=== PATIENT | male | born 1950 | race Caucasian/White ===

== ENCOUNTER 2019-11-30 14:21 | Inpatient (IN) ==
[2019-11-30] MEDS ORDERED: ONDANSETRON INJ 2 MG/ML 2 ML VIAL IV PRN (15:02)
[2019-11-30] MEDS ORDERED: OXYCODONE/ACETAMINOPHEN 5mg/325mg TAB PO PRN (15:02)
[2019-11-30] MEDS ORDERED: VANCOMYCIN CONSULT ACTIVE PRN (15:22)
[2019-11-30] MEDS ORDERED: VANCOMYCIN HCL 1,000 MG in SODIUM CHLORIDE 0.9% 250 ML IV SCH (15:30)
--- NOTE | 2019-11-30 15:37 | History & Physical Report ---
Date of Service November 30, 2019 Assessment & Plan (1) S/P total knee arthroplasty: Patient is 14mos s/p right total knee arthroplasty by Dr. Morrow. Knee aspirated in office today concerning for septic total knee. Will send for cell count, grams stain and cultures. Patient direct admitted to hospital to start IV Vancomycin. Will get appropriate preop evaluations. Will need his INR reversed for planned surgical procedure tomorrow. Labs ordered. Risks, benefits, and alternatives to surgery were discussed and they wish to proceed. Will plan on right total knee I&D with poly exchange by Dr. De Los Santos tomorrow. Laterality: right Qualified Code(s): Z96.651 - Presence of right artificial knee joint (2) Infection of total knee replacement: Encounter type: initial encounter Qualified Code(s): T84.59XA - Infection and inflammatory reaction due to other internal joint prosthesis, initial encounter; Z96.659 - Presence of unspecified artificial knee joint History of Present Illness Chief Complaint: Right knee pain and swelling Primary Care Provider: Andreea Ann PA-C Patient is a 69 year old male with PMHx significant for CAD, hx of RI, afib, high cholesterol who presents to the office with worsening right knee pain and swelling. He is about 14mos s/p right total knee arthroplasty by Dr. Morrow. Post operative course was complicated by stiffness requiring manipulation but had been doing well and was having no issues. He has been having upper respiratory symptoms for the past few weeks. He notes worsening knee pain and swelling over past couple of weeks with most severe a few days ago. He has been having some chills but no recorded fevers. He recently finished course of prednisone for his respiratory symptoms. Has had some sob and wheezing off and on. No chest pain, n/v/d, urinary symptoms. Knee was aspirated inthe office for about 35cc of cloudy, yellow/white fluid. The decision was made to direct admit the patient to start IV antibiotics and planned I&D of his right total knee tomorrow by Dr. De Los Santos. Allergies Allergy/AdvReac Type Severity Reaction Status Date / Time adhesive Allergy Unknown Rash Verified 10/02/18 06:30 doxycycline Allergy Unknown Unknown Verified 10/02/18 06:30 phenazopyridine Allergy Unknown Unknown Verified 10/02/18 06:30 Home Medications Home Medications Medication Instructions Recorded Confirmed Type carvedilol phosphate 10 mg PO QAM 08/25/18 10/02/18 History omega-3 acid ethyl esters 2 cap PO BID 08/25/18 10/02/18 History ramipril 5 mg PO HS 08/25/18 10/02/18 History warfarin 4 mg PO HS 08/25/18 10/02/18 History ascorbic acid (vitamin C) [Vitamin 500 mg PO BID 08/31/18 10/02/18 History C] furosemide 1 tab PO PRN 08/31/18 History multivitamin 1 tab PO HS 08/31/18 10/02/18 History oxycodone 5 - 10 mg PO Q4H PRN #30 tab 10/04/18 Rx warfarin [Coumadin] 5 mg PO DAILY@1600 #10 tab 10/04/18 Rx Past Med/Surg History Social History Preferred Language: Somali Communication Ability: Effective Beliefs That Will Affect Care: None marital status: Current Living Situation: Spouse Feels Safe at Home: Yes Smoking Status: Never smoker Hx Alcohol Use: No Hx Substance Use: No Review of Systems All systems reviewed & are unremarkable except as noted in HPI & below Physical Exam Constitutional: well developed, well nourished and + ill appearing; no acute distress Eyes: PERRL, conjunctivae normal, anicteric sclerae ENMT: external ear and nose normal, oropharynx normal Neck: trachea midline, no thyromegaly Respiratory: normal respiratory effort; no respiratory distress Cardiovascular: RRR, no murmur, no edema Musculoskeletal: Right knee-Mild pain with passive motion, ROM 20-110 degrees. He is walking with limp. Warm to touch, no erythema. Mild to moderate effusion. No calf tenderness. Distally n/v status and sensation intact. Skin: no rashes, warm and dry Neurologic: patellar DTR's 2+ bilat, sensation intact Psychiatric: A+Ox3, euthymic affect
[2019-11-30] MEDS ORDERED: VANCOMYCIN HCL 2,250 MG in SODIUM CHLORIDE 0.9% 500 ML IV ONE (16:00)
--- NOTE | 2019-11-30 16:13 | XRay Report ---
XR chest 2V PA/lateral CLINICAL HISTORY: 69 years-old Male presenting with preop. TECHNIQUE: PA and lateral views of the chest were obtained. COMPARISON: None. FINDINGS: Median sternotomy wires and coronary artery bypass graft rings noted as well as mediastinal surgical clips. Atherosclerosis of the aortic arch. Cardiac silhouette normal in size. Lungs and pleural space s clear. Degenerative changes of the thoracic spine. Upper abdomen normal. IMPRESSION: 1. No acute cardiopulmonary disease. ACT 112: Negative or not required by law. Electronically signed by: Carlitos Simms M.D. 11/30/2019 4:12 PM
[2019-11-30 16:26] LABS: Basophils # (auto) 0.01 K/uL (0-0.2); Basophils % (auto) 0.1 %; Eosinophils # (auto) 0.08 K/uL (0-0.5); Eosinophils % (auto) 1.1 %; Hematocrit (blood only) 43.8 % (42-52); Hemoglobin 15.4 g/dL (14.0-18.0); Immature Granulocytes # (auto) 0.02 K/uL (0.00-0.02); Immature Granulocytes % (auto) 0.3 %; Lymphocytes # (auto) 1.37 K/uL (1.2-3.4); Lymphocytes % (auto) 18.5 %; Mean Corpuscular Hemoglobin 33.4 pg (25-34); Mean Corpuscular Hgb Conc 35.2 g/dL (32-36); Mean Platelet Volume 9.7 fL (7.4-10.4); Monocytes # (auto) 0.63 K/uL (0.11-0.59); Monocytes % (auto) 8.5 %; Neutrophils # (auto) 5.29 K/uL (1.4-6.5); Neutrophils % (auto) 71.5 %; Platelet Count 210 K/uL (130-400); RDW Coefficient of Variation 12.8 % (11.5-14.5); RDW Standard Deviation 44.1 fL (36.4-46.3); Red Blood Count 4.61 M/uL (4.7-6.1)
[2019-11-30] MEDS: SODIUM CHLORIDE 0.9% 1000ML 1,000 ML IV SCH (16:32)
[2019-11-30] MEDS: PATIENT'S HEIGHT AND/OR WEIGHT NEEDED SCH (16:39)
[2019-11-30 16:44] LABS: Calcium 9.3 mg/dl (8.5-10.1); Creatinine Clr Calc Pharmacy 91.2 ml/min; Est GFR (African American) 89.7; Est GFR (Non-African American) 77.4; Potassium 4.4 mmol/L (3.5-5.1)
[2019-11-30 16:52] LABS: INR 2.3 (0.9-1.1); Prothrombin Time 23.1 Seconds (9.0-12.0)
--- NOTE | 2019-11-30 17:29 | Hospitalist Consultation ---
Date of Consultation November 30, 2019 Assessment & Plan (1) Infection of total knee replacement: - S/P R TKA in Sep 2018 - unremarkable recovery but unfortunately developed worsening pain and swelling with aspiration concerning for infection -- Surprisingly Synovial WBC only 78? It is possibly but probably unlikely for a gout however being on steroids would likely improve this if this was the case? - Pain control; Vancomycin started empirically and await Cx - Surgical management per primary team On the advised cardiac risk index patient would be a class II 6% risk of cardiac issue in 30 days related to his H/O MD. Will reverse Coumadin. Await EKG to determine any ischemic changes. If no issues on INR/EKG would be optimal for surgical intervention (2) CAD (coronary artery disease): - STABLE per patient report; H/O CABG and NSTEMI - Echo (December 2017) - EF 55-60% with hypokinesis of basal inferolateral wall - no recent echocardiograms to compare; saw cardiology prior to initial knee replacement - Reports ability to climb flights of stairs without SOB or CP; EKG ordered and will be reviewed - Will hold Ramipril pre-operatively - did have H/O ANGELO on previous admission and will try and avoid this; pending post-operative labs this can be resumed (3) Atrial fibrillation: - Rate controlled; seems to examine irregular and will get EKG to confirm - Patient reports this was once paroxysmal but largely remains in A Fib; per record review he had a holter that revealed A Fib 100% of the time - Continue Carvedilol 10 mg daily - INR 2.3 - will give Vit K 2.5 IV x 1 dose tonight and recheck in AM to determine need for further reversal -- CHADSVASC - Score is about a 2 maybe 3 if he truly has CHF issues but that is not endorsed so CVA risk 2.2-3.2% yearly Disposition: From home. Await need for surgical intervention. Hospitalists will continue to follow. Supervising Physician Co-Signing Physician Notes Attending Consult Note and Attestation - Pt seen/examined, chart reviewed, care plan d/w YOU Mojica. I agree w/ the olivo components of her consult documentation. 69yo male with h/o CABG and a.fib on coumadin - s/p TKR on right 2018 - presenting with progressive pain/swelling/warmth of right knee for several weeks. Interestingly, despite the above, he was able to bike 10 miles yesterday without any limitation (and has been biking avidly chronically). Went to [facility] ortho today- due to right knee findings had arthrocentesis - by report 35cc of cloudy fluid was obtained concerning for septic knee. Directly admitted for antibiotics and surgical intervention. During my visit the pt also c/o hoarse voice and resp illness for a few weeks. Recently received prednisone for such. PMH, PSH, allergies, meds, sochx, famhx, ros - reviewed VSS, no fever gen - NAD, a/o x3 HEENT - MMM, hoarse voice neck - no JVD heart - irregular, s1 s2, no murmur lungs - CTA b/l abd - soft NT ext - right knee with warmth and joint effusion; NO TENDERNESS with palpation or passive ROM; linear scar over the joint; left knee wnl labs reviewed A/P: 1. right total knee replacement, 2019; now with concern for septic knee. Unusual presentation given his ability to continue to bike and perform ADLs w/o limitation. WBCs on cell count very low - also odd for septic knee. Await culture from synovial fluid. Agree w/ IV vanco. Obtain blood cultures x 2 sets. Defer management to ortho. 2. a.fib, on chronic coumadin - vit K 2.5mg IV x 1; repeat INR in am. If INR not at goal that would allow safe surgery then give additional vit K at that time. 3. h/o CABG - NO ISCHEMIC SYMPTOMS at any time recently; avid exercise participation without any limitation. From medical standpoint he is optimized for orthopedic surgery tomorrow. Matthew Baires MD History of Present Illness Reason for Consultation: Pre-Op; Medical Management Attending Physician: Daniel De Los Santos MD History of Present Illness Mr. Edwards is a 69 y/o male with PMHx of CAD S/P CABG, NSTEMI (2010), Chronic A Fib, and HLD who presents as a direct admission from the orthopedics office with concern for septic knee. Pt underwent a R TKA in September 2018. Pt reports a unremarkable recovery and feels he is in his best physical shape since having the surgery. He bikes and is very active. He reports he is able to ambulate flights of stairs without SOB/CP. He denies angina. He states he was doing well until approx. 1 1/2 weeks ago when he developed URI symptoms. He states he influenza and pneumonia was R/Od but finished a prednisone taper. He reports his respiratory status is improved but still with a hoarse voice. He states he does get intermittent leg swelling but relates this to his orthopedic procedure and his L leg he had vein harvesting. He states he is sure some is from his heart but overall stable. Reviewed uploaded records from previous hospital stay and cardiology at that time said he has been very stable cardiac ajckson. He reports no acute issues. In regards to the knee, he states after his URI symptoms started that was when he developed worsening swelling and pain in the knee. He took one of his diuretics to see if that would help and it did not. He presented to the orthopedic office today and had a joint aspiration. Per their note, he was aspirated for 35 cc of cloudy, yellow/white fluid. Planning on I&D tomorrow. Allergies Allergy/AdvReac Type Severity Reaction Status Date / Time adhesive Allergy Unknown Rash Verified 10/02/18 06:30 doxycycline Allergy Unknown Unknown Verified 10/02/18 06:30 phenazopyridine Allergy Unknown Unknown Verified 10/02/18 06:30 Home Medications Home Medications Medication Instructions Recorded Confirmed Type carvedilol phosphate 10 mg PO QAM 08/25/18 11/30/19 History omega-3 acid ethyl esters 2 cap PO BID 08/25/18 11/30/19 History ramipril 5 mg PO HS 08/25/18 11/30/19 History warfarin 4 mg PO HS 08/25/18 11/30/19 History ascorbic acid (vitamin C) [Vitamin 500 mg PO BID 08/31/18 11/30/19 History C] furosemide 1 tab PO PRN 08/31/18 History multivitamin 1 tab PO HS 08/31/18 11/30/19 History oxycodone 5 - 10 mg PO Q4H PRN #30 tab 10/04/18 11/30/19 Rx warfarin [Coumadin] 4 mg PO DAILY@2200 11/30/19 History Patient History Medical History Atrial fibrillation persistent BPH (benign prostatic hyperplasia) s/p TURP CAD (coronary artery disease) Dyslexia High cholesterol Hx of Lyme disease Hx of myocardial infarction December 24/2018 -went to [facility] and transfered to [facility]. Had Heart Cath - no stenting. Hx of syncope If turns head to left and turns eyes back - gets dizzy and occassionally passes out. Evaluated by neuro --thought to be related to vertebrobasilar stenosis Osteoarthritis Surgical History History of cardiac cath 12/2017 History of colonoscopy History of prostate surgery Hx of hand surgery traumatic injury index finger right hand Hx of heart bypass surgery x4 vessels - [facility] - 06/30/2011 Hx of tonsillectomy Family History (Updated 11/30/19 @ 17:57 by Madiha Mojica PA-C) Other Family history non-contributory Social History Preferred Language: Swedish Communication Ability: Effective [place] Required: No Beliefs That Will Affect Care: None marital status: Current Living Situation: Spouse and Family Other Information That Helps Us Care for You: No Feels Safe at Home: Yes Safety Concerns: Feels Safe At This Time Smoking Status: Never smoker Hx Alcohol Use: No Hx Substance Use: No Review of Systems Constitutional: no fever and no chills Ear, Nose, Mouth, Throat: + hoarseness; no nasal congestion, no sore throat and no dysphagia Respiratory: + cough; no dyspnea Cardiovascular: + edema (chronic; acute in R knee); no chest pain, no palpitations and no lightheadedness Gastrointestinal: no abdominal pain, no nausea, no vomiting, no constipation and no diarrhea/loose stools Genitourinary: no dysuria Musculoskeletal: + joint pain (R knee) and + swelling (R knee) Integumentary: no rash Neurologic: no falls Physical Exam Constitutional: WD/WN, vitals as above Eyes: + anicteric sclerae ENMT: Ears: no hearing impairment Neck: trachea midline Respiratory: normal respiratory effort, lungs clear to auscultation Cardiovascular: Rate/Rhythm: regular rate and + irregularly irregular Heart Sounds: no murmur Vessels: no JVD Extremities: + edema (trace b/l lower extremities) Gastrointestinal (Abdomen): Inspection/Auscultation: normal bowel sounds Percussion/Palpation: abdomen soft; abdomen nontender Musculoskeletal: Head/Neck/Chest: normocephalic and head atraumatic R knee with healed surgical scar; no drainage or erythema; mild warmth to touch Skin: no rashes, warm and dry Neurologic: moves all extremities Psychiatric: A+Ox3, euthymic affect Results & Data ([facility]) Vital Signs (Past 12 Hours) Vital Signs Temp Pulse Resp BP Pulse Ox 11/30/19 15:28 37.0 C 74 16 136/76 93 PG Care Time/CCT Total # of Minutes Spent Total Time Spent with Patient: Total time spent is greater than 50% in coordination of care (as documented) at patient's floor/unit and/or counseling patient: Coding Level of Care Code 70455 Inpt Consult Level 4 Diagnoses Infection of total knee replacement T84.59XA; Z96.659 Encounter type: initial encounter CAD (coronary artery disease) I25.10 Atrial fibrillation I48.91 (1) Infection of total knee replacement Encounter type: initial encounter Qualified Code(s): T84.59XA - Infection and inflammatory reaction due to other internal joint prosthesis, initial encounter; Z96.659 - Presence of unspecified artificial knee joint
[2019-11-30] MEDS ORDERED: PHYTONADIONE 2.5 MG in SODIUM CHLORIDE 0.9% 50 ML IV STA (17:50)
[2019-11-30 17:59] LABS: Appearance Synovial Fluid CLOUDY; Color Synovial Fluid YELLOW; Mononuclear WBC Synovial 3.6 %; Polynuclear WBC Synovial 96.4 %; RBC Synovial Fluid (A) 10000 /uL; Source Synovial Fluid KNEE
[2019-11-30] MEDS ORDERED: FUROSEMIDE 20 MG TAB PO PRN (18:00)
--- NOTE | 2019-11-30 20:51 | Pharmacy Report ---
Pharmacy Abx Initial Consult - Date of Service November 30, 2019 - Pharmacy Dosing Scope Date of Consult: 11/30/2019 Consultation requested by: Craig Gloria PA-C Pharmacy is consulted to initiate Vancomycin IV dosing therapy, order appropriate labs and adjust drug dose/frequency. - Subjective The patient is a 69 year old M admitted on 11/30/19 14:53. - Objective Height: 6 ft 2 in Weight: 105.5 kg Vital Signs (Past 12hrs): Vital Signs Temp Pulse Resp BP Pulse Ox 11/30/19 19:35 36.9 C 73 16 123/73 98 11/30/19 19:15 36.8 C 83 16 125/81 96 11/30/19 19:00 36.8 C 83 18 124/82 98 11/30/19 15:28 37.0 C 74 16 136/76 93 Lab Results (24hrs): Laboratory Tests (24 Hours) 11/30/19 11/30/19 11/30/19 16:13 16:13 16:13 WBC Neut # (Auto) ESR 83 H Creatinine Cancelled Est Cr Clr Drug Dosing Cancelled C-Reactive Protein 11.50 H 11/30/19 11/30/19 16:13 16:13 WBC 7.40 Neut # (Auto) 5.29 ESR Creatinine 0.99 Est Cr Clr Drug Dosing 91.2 C-Reactive Protein Micro Results: 11/30/19 18:11 Aerobic Blood Culture - Pending Blood Anaerobic Blood Culture - Pending 11/30/19 18:01 Aerobic Blood Culture - Pending Blood Anaerobic Blood Culture - Pending 11/30/19 Unknown Gram Stain - Pending Knee,Right Aerobic and Anaerobic Culture - Pending - Risk Factors for Resistance * Antimicrobial use within the last 90 days: * Clindamycin - Assessment & Plan Assessment 69 year old M admitted for possible septic knee 14 months s/p TKA I&D planned for 11/30 Renal function at baseline, afebrile, no leukocytosis Plan Vancomycin for treatment of suspected septic knee Vancomycin IV * Estimated PK Parameters: Vd 0.6 L/kg, Tony 0.08 hr-1, t1/2 ~9 hrs * Loading dose: 2250 mg (21 mg/kg) * Maintenance dose: 1500 mg IV (14 mg/kg) every 10 hours * Goal trough: 15 to 20 mcg/mL * Trough/Random level ordered for 12/02/2019 prior to the 5th total dose to reflect steady state levels Pharmacy will continue to follow and will adjust dose/frequency as necessary. Thank you.
[2019-11-30] MEDS ORDERED: RAMIPRIL 5 MG PO SCH (21:00)
[2019-11-30] MEDS: carvediloL 3.125 MG TAB PO SCH (21:35)
[2019-12-01] MEDS: VANCOMYCIN HCL 1,500 MG in SODIUM CHLORIDE 0.9% 500 ML IV SCH ×3 (02:19→21:43)
[2019-12-01] MEDS: SODIUM CHLORIDE 0.9% 1000ML 1,000 ML IV SCH ×2 (05:23→21:42)
[2019-12-01 05:25] LABS: Hematocrit (blood only) 37.7 % (42-52); Hemoglobin 12.9 g/dL (14.0-18.0); Mean Corpuscular Hemoglobin 32.3 pg (25-34); Mean Corpuscular Hgb Conc 34.2 g/dL (32-36); Mean Corpuscular Volume 94.3 fL (80-100); Mean Platelet Volume 9.3 fL (7.4-10.4); Platelet Count 180 K/uL (130-400); RDW Coefficient of Variation 12.8 % (11.5-14.5); RDW Standard Deviation 44.3 fL (36.4-46.3); White Blood Count 5.27 K/uL (4.8-10.8)
[2019-12-01 05:41] LABS: INR 1.5 (0.9-1.1); Prothrombin Time 15.1 Seconds (9.0-12.0)
[2019-12-01 05:55] LABS: BUN Creatinine Ratio 16.9 (10-20); Calcium 8.2 mg/dl (8.5-10.1); Est GFR (African American) 96.7; Est GFR (Non-African American) 83.5; Potassium 4.2 mmol/L (3.5-5.1)
[2019-12-01] MEDS: carvediloL 3.125 MG TAB PO SCH ×2 (08:26→20:55)
[2019-12-01 11:23] LABS: WBC Synovial Fluid (A) 78400 /ul (0-200)
[2019-12-01] MEDS ORDERED: MIDAZOLAM HCL 1 MG/ML 2ML VIAL ONE (13:52)
[2019-12-01] MEDS ORDERED: fentaNYL citrate 100 MCG/2 ML VIAL ONE (13:52)
--- NOTE | 2019-12-01 14:05 | Hospitalist Progress Note ---
Date of Service December 01, 2019 Assessment & Plan (1) Infection of total knee replacement: - S/p R TKA in Sep 2018; unremarkable recovery but unfortunately developed worsening pain and swelling with aspirated fluid concerning for infection. - Synovial WBC 78; consider addition of steroids for gout & uric acid level. - Right knee fluid with pin point growth, currently re-incubating. - Continue Vancomycin IV for empiric coverage. - Ortho as primary team - plan for right total knee I&D with poly exchange today. On the advised cardiac risk index patient would be a class II 6% risk of cardiac issue in 30 days related to his H/O [place]. Reversed Coumadin, INR was 1.5 this morning. (2) CAD (coronary artery disease): - H/o CABG and NSTEMI - Echo (December 2017) - EF 55-60% with hypokinesis of basal inferolateral wall - no recent echocardiograms to compare. - Can climb flights of stairs without SOB or CP. - Hold Ramipril during operative period; continue Coreg as prescribed. (3) Atrial fibrillation: - Rate controlled on exam. - Patient reports this was once paroxysmal but largely remains in A Fib; per record review he had a holter that revealed A Fib 100% of the time - Continue Carvedilol 3.125 mg BID (10 mg daily at home, is non-formulary as inpatient) - INR was reversed on day of admission, 1.5 this morning. - CHADSVASC - Score is about a 2 maybe 3 if he truly has CHF issues but that is not endorsed so CVA risk 2.2-3.2% yearly. Dispo: Med/surg; will continue to follow, please call with any questions. Admission and Anticipated Discharge Date Admission Date: November 30, 2019 Supervising Physician Co-Signing Physician Notes Attending Attestation - Chart reviewed in detail, care plan d/w YOU Hooker. I agree w/ the olivo components of her documentation. 69yo male - a.fib, CAD - right suspected right septic knee in setting of TKR 1 year ago. Synovial fluid cx pending; remains on IV vanco. To OR today. Await cultures. Matthew Baires MD Subjective Pt. is doing well -- right knee pain improved. Plan for surgery per ortho today. Has not had a BM since admission. Denies urinary retention. Review of Systems Review of Systems: All systems reviewed & are unremarkable except as noted in HPI & below Constitutional: + fatigue and + weakness; no fever, no chills and no anorexia Respiratory: no cough, no dyspnea and no dyspnea on exertion Cardiovascular: no chest pain, no palpitations and no edema Gastrointestinal: + constipation; no abdominal pain, no nausea and no vomiting Genitourinary: no difficulty urinating Musculoskeletal: + joint pain and + swelling; no back pain Integumentary: no non-healing lesions Physical Exam Physical Exam: General: Resting comfortably HEENT: NC/AT; PERRLA with EOMI; [place] conjunctiva, MMM. No erythema of posterior pharynx Neck: Supple and nontender Cardiac: RRR Lungs: CTA bilaterally Abdomen: Bowel normoactive X 4; Nontender to palpation Extremities: Warm. Right knee edema, tender to light palpation. Neuro: No focal weakness Skin: No rash Results & Data ([facility]) Vital Signs (Past 12 Hours) Vital Signs Temp Pulse Resp BP Pulse Ox 12/01/19 07:16 36.8 C 81 18 130/80 98 Laboratory Results 12/01/19 12/01/19 12/01/19 Range/Units 05:08 05:08 05:08 WBC 5.27 (4.8-10.8) K/uL RBC 4.00 L (4.7-6.1) M/uL Hgb 12.9 L (14.0-18.0) g/dL Hct 37.7 L (42-52) % MCV 94.3 (80-100) fL MCH 32.3 (25-34) pg MCHC 34.2 (32-36) g/dL RDW Std Deviation 44.3 (36.4-46.3) fL RDW Coeff of Carlos 12.8 (11.5-14.5) % Plt Count 180 (130-400) K/uL MPV 9.3 (7.4-10.4) fL Immature Gran % (Auto) % Neut % (Auto) % Lymph % (Auto) % [place] % (Auto) % Eos % (Auto) % Baso % (Auto) % Immature Gran # (Auto) (0.00-0.02) K/uL Neut # (Auto) (1.4-6.5) K/uL Lymph # (Auto) (1.2-3.4) K/uL [place] # (Auto) (0.11-0.59) K/uL Eos # (Auto) (0-0.5) K/uL Baso # (Auto) (0-0.2) K/uL ESR (0-14) mm/hr PT 15.1 H (9.0-12.0) Seconds INR 1.5 H (0.9-1.1) Sodium 139 (136-145) mmol/L Potassium 4.2 (3.5-5.1) mmol/L Chloride 109 H (98-107) mmol/L Carbon Dioxide 26 (21-32) mmol/L Anion Gap 4.0 (3-11) BUN 16 (7-18) mg/dl Creatinine 0.93 (0.6-1.4) mg/dl Est Cr Clr Drug Dosing 97.0 ml/min Est GFR ( Amer) 96.7 Est GFR (Non-Af Amer) 83.5 BUN/Creatinine Ratio 16.9 (10-20) Glucose 101 H (70-99) mg/dl Calcium 8.2 L (8.5-10.1) mg/dl C-Reactive Protein (0-0.29) mg/dl Synovial Source Synovial Color Synovial Appearance Synovial WBC (0-200) /ul Synovial RBC /uL Synovial Polynuclear % % Synovial Mononuclear % % Synovial Crystals 11/30/19 11/30/19 11/30/19 Range/Units Unknown Unknown 16:13 WBC (4.8-10.8) K/uL RBC (4.7-6.1) M/uL Hgb (14.0-18.0) g/dL Hct (42-52) % MCV (80-100) fL MCH (25-34) pg MCHC (32-36) g/dL RDW Std Deviation (36.4-46.3) fL RDW Coeff of Carlos (11.5-14.5) % Plt Count (130-400) K/uL MPV (7.4-10.4) fL Immature Gran % (Auto) % Neut % (Auto) % Lymph % (Auto) % [place] % (Auto) % Eos % (Auto) % Baso % (Auto) % Immature Gran # (Auto) (0.00-0.02) K/uL Neut # (Auto) (1.4-6.5) K/uL Lymph # (Auto) (1.2-3.4) K/uL [place] # (Auto) (0.11-0.59) K/uL Eos # (Auto) (0-0.5) K/uL Baso # (Auto) (0-0.2) K/uL ESR (0-14) mm/hr PT (9.0-12.0) Seconds INR (0.9-1.1) Sodium (136-145) mmol/L Potassium (3.5-5.1) mmol/L Chloride (98-107) mmol/L Carbon Dioxide (21-32) mmol/L Anion Gap (3-11) BUN (7-18) mg/dl Creatinine (0.6-1.4) mg/dl Est Cr Clr Drug Dosing ml/min Est GFR ( Amer) Est GFR (Non-Af Amer) BUN/Creatinine Ratio (10-20) Glucose (70-99) mg/dl Calcium (8.5-10.1) mg/dl C-Reactive Protein 11.50 H (0-0.29) mg/dl Synovial Source KNEE Synovial Color YELLOW Synovial Appearance CLOUDY Synovial WBC 70690 H (0-200) /ul [place] [address] /uL Synovial Polynuclear % 96.4 % Synovial Mononuclear % 3.6 % Synovial Crystals 11/30/19 11/30/19 11/30/19 Range/Units 16:13 16:13 16:13 WBC (4.8-10.8) K/uL RBC (4.7-6.1) M/uL Hgb (14.0-18.0) g/dL Hct (42-52) % MCV (80-100) fL MCH (25-34) pg MCHC (32-36) g/dL RDW Std Deviation (36.4-46.3) fL RDW Coeff of Carlos (11.5-14.5) % Plt Count (130-400) K/uL MPV (7.4-10.4) fL Immature Gran % (Auto) % Neut % (Auto) % Lymph % (Auto) % [place] % (Auto) % Eos % (Auto) % Baso % (Auto) % Immature Gran # (Auto) (0.00-0.02) K/uL Neut # (Auto) (1.4-6.5) K/uL Lymph # (Auto) (1.2-3.4) K/uL [place] # (Auto) (0.11-0.59) K/uL Eos # (Auto) (0-0.5) K/uL Baso # (Auto) (0-0.2) K/uL ESR 83 H (0-14) mm/hr PT (9.0-12.0) Seconds INR (0.9-1.1) Sodium 137 (136-145) mmol/L Potassium 4.4 (3.5-5.1) mmol/L Chloride 105 (98-107) mmol/L Carbon Dioxide 27 (21-32) mmol/L Anion Gap 5.0 (3-11) BUN 18 (7-18) mg/dl Creatinine Cancelled 0.99 (0.6-1.4) mg/dl Est Cr Clr Drug Dosing Cancelled 91.2 ml/min Est GFR ( Amer) Cancelled 89.7 Est GFR (Non-Af Amer) Cancelled 77.4 BUN/Creatinine Ratio 18.0 (10-20) Glucose 92 (70-99) mg/dl Calcium 9.3 (8.5-10.1) mg/dl C-Reactive Protein (0-0.29) mg/dl Synovial Source Synovial Color Synovial Appearance Synovial WBC (0-200) /ul Synovial RBC /uL Synovial Polynuclear % % Synovial Mononuclear % % Synovial Crystals 11/30/19 11/30/19 Range/Units 16:13 16:12 WBC 7.40 (4.8-10.8) K/uL RBC 4.61 L (4.7-6.1) M/uL Hgb 15.4 (14.0-18.0) g/dL Hct 43.8 (42-52) % MCV 95.0 (80-100) fL MCH 33.4 (25-34) pg MCHC 35.2 (32-36) g/dL RDW Std Deviation 44.1 (36.4-46.3) fL RDW Coeff of Carlos 12.8 (11.5-14.5) % Plt Count 210 (130-400) K/uL MPV 9.7 (7.4-10.4) fL Immature Gran % (Auto) 0.3 % Neut % (Auto) 71.5 % Lymph % (Auto) 18.5 % [place] % (Auto) 8.5 % Eos % (Auto) 1.1 % Baso % (Auto) 0.1 % Immature Gran # (Auto) 0.02 (0.00-0.02) K/uL Neut # (Auto) 5.29 (1.4-6.5) K/uL Lymph # (Auto) 1.37 (1.2-3.4) K/uL [place] # (Auto) 0.63 H (0.11-0.59) K/uL Eos # (Auto) 0.08 (0-0.5) K/uL Baso # (Auto) 0.01 (0-0.2) K/uL ESR (0-14) mm/hr PT 23.1 H (9.0-12.0) Seconds INR 2.3 H (0.9-1.1) Sodium (136-145) mmol/L Potassium (3.5-5.1) mmol/L Chloride (98-107) mmol/L Carbon Dioxide (21-32) mmol/L Anion Gap (3-11) BUN (7-18) mg/dl Creatinine (0.6-1.4) mg/dl Est Cr Clr Drug Dosing ml/min Est GFR ( Amer) Est GFR (Non-Af Amer) BUN/Creatinine Ratio (10-20) Glucose (70-99) mg/dl Calcium (8.5-10.1) mg/dl C-Reactive Protein (0-0.29) mg/dl Synovial Source Synovial Color Synovial Appearance Synovial WBC (0-200) /ul Synovial RBC /uL Synovial Polynuclear % % Synovial Mononuclear % % Synovial Crystals PG Care Time/CCT Total # of Minutes Spent Total Time Spent with Patient: Total time spent is greater than 50% in coordination of care (as documented) at patient's floor/unit and/or counseling patient: Coding Level of Care Code 37025 Subseq Hosp Care Lvl 3 Diagnoses Infection of total knee replacement T84.59XA; Z96.659 Encounter type: initial encounter CAD (coronary artery disease) I25.10 Atrial fibrillation I48.91 (1) Infection of total knee replacement Encounter type: initial encounter Qualified Code(s): T84.59XA - Infection and inflammatory reaction due to other internal joint prosthesis, initial encounter; Z96.659 - Presence of unspecified artificial knee joint
[2019-12-01] MEDS ORDERED: BACITRACIN INJ 50,000 UNIT VIAL ONE ×2 (14:51→16:30)
--- NOTE | 2019-12-01 15:09 | Orthopedic Progress Note ---
Date of Service December 01, 2019 Assessment & Plan (1) Infection of total knee replacement: Plan for right TKA I&D today with poly exchange. Patient NPO. Admission and Anticipated Discharge Date Admission Date: November 30, 2019 Subjective Prepared for knee I&D today. cell count corrected to 78,00 Patient comfortable. Physical Exam Physical Exam: Right knee warm to touch, mild erythema, no drainage. Mild pain with PROM. Results & Data ([facility]) Vital Signs (Past 12 Hours) Vital Signs Temp Pulse Resp BP Pulse Ox 12/01/19 07:16 36.8 C 81 18 130/80 98 (1) Infection of total knee replacement Encounter type: initial encounter Qualified Code(s): T84.59XA - Infection and inflammatory reaction due to other internal joint prosthesis, initial encounter; Z96.659 - Presence of unspecified artificial knee joint
--- NOTE | 2019-12-01 15:12 | Anesthesiology Consultation ---
Date of Service December 01, 2019 Assessment & Plan (1) Encounter for pre-operative examination: Chart Review Chart Review: Acceptable Risk for Surgery and Patient NOT seen in Pre Admission Testing Consults Requested none History Surgery Operation Date: 12/01/19 07:00 Proposed Procedures p Right Total Knee, Irrigation and Drainage with Poly Exchange - Daniel De Los Santos MD Height/Weight Height: 6 ft 2 in Weight: 105.5 kg Allergies Allergy/AdvReac Type Severity Reaction Status Date / Time adhesive Allergy Unknown Rash Verified 10/02/18 06:30 doxycycline Allergy Unknown Unknown Verified 10/02/18 06:30 phenazopyridine Allergy Unknown Unknown Verified 10/02/18 06:30 Medications Home Medications Medication Instructions Recorded Confirmed Last Taken carvedilol phosphate 10 mg PO QAM 08/25/18 11/30/19 11/30/19 08:00 omega-3 acid ethyl esters 2 cap PO BID 08/25/18 11/30/19 11/30/19 08:00 ramipril 5 mg PO HS 08/25/18 11/30/19 11/29/19 22:00 warfarin 4 mg PO HS 08/25/18 11/30/19 11/29/19 22:00 ascorbic acid (vitamin C) [Vitamin 500 mg PO BID 08/31/18 11/30/19 11/30/19 08:00 C] furosemide 1 tab PO PRN 08/31/18 Unknown multivitamin 1 tab PO HS 08/31/18 11/30/19 11/29/19 22:00 oxycodone 5 - 10 mg PO Q4H PRN #30 tab 10/04/18 11/30/19 Unknown warfarin [Coumadin] 4 mg PO DAILY@2200 11/30/19 11/29/19 22:00 Active Medications Generic Name Dose Route Start Last Admin Trade Name Freq PRN Reason Stop Dose Admin Carvedilol 3.125 mg 11/30/19 21:00 12/01/19 08:26 Coreg PO 12/30/19 20:59 3.125 mg BID FRANK Administration Protocol Sodium Chloride 1,000 mls @ 70 mls/hr 11/30/19 15:15 12/01/19 05:23 Nss 1000ml IV 12/30/19 15:14 70 mls/hr .[id number] FRANK Administration Vancomycin HCl 1,500 mg/ 530 mls @ 200 mls/hr 12/01/19 02:00 12/01/19 14:12 Sodium Chloride IV 01/12/20 01:59 Infused Q10H FRANK Infusion Protocol NPO Date Last Intake of Fluids: 11/30/19 Time Last Intake of Fluids: 23:55 Date Last Intake of Solids: 11/30/19 Time Last Intake of Solids: 18:00 Past Medical History Medical History (Updated 12/01/19 @ 15:39 by Julio Granda MD) Atrial fibrillation persistent BPH (benign prostatic hyperplasia) s/p TURP CAD (coronary artery disease) Dyslexia High cholesterol Hx of Lyme disease Hx of myocardial infarction December 24/2018 -went to [facility] and transfered to [facility]. Had Heart Cath - no stenting. Hx of syncope If turns head to left and turns eyes back - gets dizzy and occassionally passes out. Evaluated by neuro --thought to be related to vertebrobasilar stenosis Osteoarthritis Past Family History Family History Other Family history non-contributory Past Surgical History Surgical History History of cardiac cath 12/2017 History of colonoscopy History of prostate surgery History of total knee arthroplasty 10/02/19 R knee Hx of hand surgery traumatic injury index finger right hand Hx of heart bypass surgery x4 vessels - [facility] - 06/30/2011 Hx of tonsillectomy Social History Smoking Status: Never smoker Hx Alcohol Use: No Hx Substance Use: No Physical Exam Vital Signs Last Vital Signs Temp 36.8 C 12/01/19 15:11 Pulse 80 12/01/19 15:11 Resp 18 12/01/19 15:11 BP 133/84 12/01/19 15:11 Pulse Ox 98 12/01/19 15:11 Testing Laboratory Results 12/01/19 05:08 12/01/19 05:08 PT 15.1 Seconds (9.0-12.0) H 12/01/19 05:08 INR 1.5 (0.9-1.1) H 12/01/19 05:08 11/30/19 Unknown Gram Stain - Final Knee,Right Aerobic and Anaerobic Culture - Preliminary Pin-point growth present, reincubating. Electrocardiogram Date: 12/01/19 Findings: + AFIB @ (82) L axis deviation Chest X-Ray Date: 11/30/19 XR chest 2V PA/lateral CLINICAL HISTORY: 69 years-old Male presenting with preop. TECHNIQUE: PA and lateral views of the chest were obtained. COMPARISON: None. FINDINGS: Median sternotomy wires and coronary artery bypass graft rings noted as well as mediastinal surgical clips. Atherosclerosis of the aortic arch. Cardiac silhouette normal in size. Lungs and pleural spaces clear. Degenerative changes of the thoracic spine. Upper abdomen normal. IMPRESSION: 1. No acute cardiopulmonary disease. ACT 112: Negative or not required by law. Electronically signed by: Carlitos Simms M.D. 11/30/2019 4:12 PM Dictated: 11/30/19 1611 Transcribed: 11/30/19 1611
--- NOTE | 2019-12-01 15:50 | History & Physical Bridge Note ---
Date of Service December 01, 2019 History & Physical Bridge Note I have examined the patient, reviewed the History & Physical and in the interval since the performance of the History & Physical I have noted the following changes of clinical significance: no changes noted
--- NOTE | 2019-12-01 16:27 | Electrocardiogram Report ---
Test Reason : Blood Pressure : / mmHG Vent. Rate : 082 BPM Atrial Rate : 000 BPM P-R Int : 000 ms QRS Dur : 082 ms QT Int : 346 ms P-R-T Axes : 000 -31 046 degrees QTc Int : 404 ms Atrial fibrillation Left axis deviation Peaked T waves(consider ischemia,hyperkalemia,etc.) Abnormal ECG No previous ECGs available Confirmed by Syed Bond ([id number]) on 12/01/2019 4:27:45 PM Referred By: Daniel De Los Santos Confirmed By:Syed Bond
[2019-12-01] MEDS ORDERED: TOBRAMYCIN SULF 40 MG/ML 2 ML VIAL ONE ×2 (16:40→16:48)
[2019-12-01] MEDS ORDERED: VANCOMYCIN HCL 1000MG/20ML VIAL ONE (16:41)
[2019-12-01] MEDS ORDERED: TOBRAMYCIN SULFATE 1,200 MG VIAL ONE (16:41)
[2019-12-01] MEDS ORDERED: HYDROmorphone INJ 2 MG/ML SYR/VIAL ONE (16:54)
[2019-12-01] MEDS ORDERED: PROPOFOL IV EMULSION 10 MG/ML 20 ML VIAL IV ONE (16:55)
[2019-12-01] MEDS ORDERED: LIDOCAINE HCL 2% 2 ML VIAL/AMP(20MG/ML) INFIL ONE (16:55)
[2019-12-01] MEDS ORDERED: ONDANSETRON INJ 2 MG/ML 2 ML VIAL ONE (16:55)
[2019-12-01] MEDS ORDERED: ATROPINE SULFATE 0.1 MG/ML 10ML SYR IV PRN (16:59)
[2019-12-01] MEDS ORDERED: ePHEDrine sulfate 50 MG/ML AMP IV PRN (16:59)
[2019-12-01] MEDS ORDERED: fentaNYL citrate 100 MCG/2 ML VIAL IV PRN (16:59)
[2019-12-01] MEDS ORDERED: LABETALOL HCL IV 5 MG/ML 20ML IV PRN (16:59)
[2019-12-01] MEDS ORDERED: HYDROmorphone INJ 1 MG/ML SYRINGE IV PRN (16:59)
[2019-12-01] MEDS ORDERED: PHENYLEPHRINE 100MCG/ML 5ML SYR IV PRN (16:59)
[2019-12-01] MEDS ORDERED: ONDANSETRON INJ 2 MG/ML 2 ML VIAL IV PRN ×2 (16:59→23:00)
--- NOTE | 2019-12-01 18:26 | Post Operative Brief Note ---
Immediate Post Op Note v1 Date of Surgery December 01, 2019 Pre & Post Diagnosis Operation Date: 12/01/19 07:00 Pre-Op Diagnosis: Right Knee Pain, S/P Total Knee Replacement,septic total knee replacement Post-Op Diagnosis: Right Knee Pain, Septic Total Knee Replacement I identified the patient and participated in the time-out.: Yes Procedure Operation Date: 12/01/19 07:00 Actual Procedures p Right Total Knee, Incision and Drainage, Irrigation Debridement with Polyethelene Exchange; Synovectomy; Antibiotic Bead Placement(Right) - Daniel De Los Santos MD Surgeon Daniel De Los Santos MD Trials Manager YOU Lee Estimated Blood Loss 20 Findings Consistent with Post-Op Diagnosis Specimens Synovium, cultures x2 Drains Hemovac Drain Anesthesia Type General Complications none Disposition Accompanied Patient To Recovery: No Disposition: Recovery Room Overlapping Procedure I was immediately available: during the entire case.
--- NOTE | 2019-12-01 18:57 | Anesthesiology Progress Note ---
Date of Service December 01, 2019 Anesthesia Post Procedure Vital Signs Vital Signs: Temp Pulse Pulse Resp BP BP Pulse Ox 12/01/19 18:45 97 H 14 125/88 98 12/01/19 18:35 92 H 16 134/83 96 12/01/19 18:27 36.4 C L 91 H 12 126/89 97 12/01/19 15:11 36.8 C 80 18 133/84 98 12/01/19 07:16 36.8 C 81 18 130/80 98 11/30/19 23:21 36.8 C 70 18 114/72 97 11/30/19 19:35 36.9 C 73 16 123/73 98 11/30/19 19:15 36.8 C 83 16 125/81 96 11/30/19 19:00 36.8 C 83 18 124/82 98 Pain Intensity Right Knee: Pain Intensity: 3 Transfer of Care Handoff Completed per policy Notes Mental Status: alert / awake / arousable Patient Amnestic to Procedure: Yes Nausea / Vomiting: adequately controlled Pain: adequately controlled Airway Patency, RR, SpO2: stable & adequate BP & HR: stable & adequate Hydration State: stable & adequate Anesthetic Complications: no major complications apparent and Pt Satisfied with anesthetic care
--- NOTE | 2019-12-01 19:17 | Operative Report (OR) ---
DATE OF OPERATION: 12/01/2019 INDICATION FOR PROCEDURE: 69-year-old male who became acutely ill and had acute pain in his right knee. He is status post index total knee replacement in 10/02/2018. No problems until recently. He was seen in the clinic and the knee was aspirated for cloudy fluid consistent with septic knee. Did also have an elevated sed rate, CRP, knee joint cell fluid 78,000 and Gram stain and cultures pending. Application of a superficial wound VAC. PREOPERATIVE DIAGNOSIS: Septic right total knee replacement, acute onset. POSTOPERATIVE DIAGNOSES: Same including chronic synovitis. PROCEDURE: Right knee incision, drainage, irrigation, debridement, polyethylene exchange, electrocautery synovectomy and antibiotic bead placement and closure over drains. SURGEON: Daniel De Los Santos MD LOAD PLANNER: Heron Horton PA-C ANESTHESIA: General. OPERATIVE PROCEDURE: The patient taken to the operating room, anesthetized under general anesthetic. He was placed supine on the operating room table. Pneumatic tourniquet was placed on his right upper thigh. His right lower extremity was prepped and draped in sterile fashion. Exam demonstrated he had a large effusion had no erythema, no drainage, no sinuses. He had a 15 degree flexion contracture with further flexion to 120 degrees. No instability. The leg was elevated, no Esmarch was used. Pneumatic tourniquet was raised to 350 mmHg. Previous anterior scar was utilized for the anterior incision. Skin flaps were elevated. The tissues were edematous. Incision was made through medial retinaculum extended up in the mid third of the quadriceps tendon and extended down to the medial tibial tubercle. The synovial tissue was markedly thickened at least 2.5 cm thick. The fluid in the joint was significantly cloudy with a lot of debris with the appearance of sepsis. We obtained cultures initially. Then we irrigated out the knee with antibiotic solution with bacitracin. We used pulsatile lavage. Then I did an electrocautery synovectomy removing all the markedly thickened and inflamed synovial tissue. We sent some to pathology for evaluation. A synovectomy was performed in the suprapatellar pouch and the gutters and then we used the Versajet along the edges of the tibia medially and laterally and anteriorly. Then, the polyethylene was removed uneventfully. The polyethylene had no evidence of wear or any mechanical issues with the polyethylene and it had normal appearance to it. This allowed us to access the posterior aspect of the joint. This was further copiously irrigated. In the notch area the synovial tissue was removed down to the bone. Versajet was used in the posterior aspect of the knee to treat areas we could not access otherwise. The knee was further copiously irrigated. Then we did a trial reduction. The patient had a [employer] knee replacement with a size 6 tibia. We used a size 9 posterior stabilized polyethylene trial insert for the size 6 tibia. This had a tight fit and had similar range of motion to his preoperative status and the knee was stable, so we chose to go ahead with a 9 poly. At this time, we used a Betadine scrub brush to scrub all the metal and we irrigated this out and did a 3-minute Betadine soak with Betadine and saline solution. We irrigated this out and then placed in the final polyethylene which was the [employer] II posterior stabilized size 6 polyethylene. The knee was stable through full range of motion. After further irrigation for a total of 9 liters of fluid the knee joint was suctioned out and antibiotic beads which were previously fashioned, which had tobramycin and vancomycin impregnated into the beads, were placed into the knee joint. Two Hemovac drains were brought out laterally. The quadriceps tendon and medial retinaculum were closed with interrupted [id number] #1 bacterial-resistant Vicryl suture and the knee was taken through full range of motion and repair was secure. Then the subcutaneous tissues were irrigated further and then the subcutaneous tissues were closed with interrupted 2-0 bacterial-resistant suture material. Skin was closed with clive and a superficial Prevena wound VAC was placed. The tourniquet was let down. The patient had normal capillary refill of the extremity. The patient tolerated the procedure well. Heron Horton PA-C was my language assistant. He functioned as language assistant for the entire procedure. He assisted in patient positioning, prepping, draping, leg position, soft tissue retraction, assisted in the closure and placement of the superficial wound VAC and will participate in postoperative care of the patient. I attest to the content of the Intraoperative Record and any orders documented therein. Any exception s are noted below.
[2019-12-01] MEDS ORDERED: HYDROmorphone INJ 0.5 MG/0.5 ML SYR IV PRN (19:31)
[2019-12-01] MEDS: WARFARIN SOD 4 MG TAB PO SCH (20:55)
[2019-12-01] MEDS ORDERED: ondansetron HCL 6 MG in DEXTROSE 5% 50 ML IV PRN (22:09)
[2019-12-02] MEDS: ACETAMINOPHEN 500 MG TAB PO PRN ×2 (04:47→15:36)
[2019-12-02] MEDS ORDERED: OXYCODONE HCL IR 5 MG TAB (IMMEDIATE RELEASE) PO PRN (07:17)
--- NOTE | 2019-12-02 07:17 | Orthopedic Progress Note ---
Date of Service December 02, 2019 Assessment & Plan (1) Infection of total knee replacement: POD#1 Right TKA I&D, poly exchange, synovectomy, placement of antibiotic beads -PT/OT-WBAT -Pain management -DVT prophylaxis-SCDs, resume home warfarin -AM labs are pending -Cultures from knee aspirate on 11/30/19 showing pin point growth, re-incubating. Gram stain with many WBCs, no organisms. Cell count was 78,400 96% poly's. OR cultures are pending. Blood cultures no growth at 24 hours. -Continue IV Vancomycin for now, await final cultures. Will need 6 weeks IV antibiotics. Admission and Anticipated Discharge Date Admission Date: November 30, 2019 Subjective Patient resting in bed comfortably. Pain in knee controlled. Denies chest pain, sob, fever, chills, n/v/d. Review of Systems Review of Systems: All systems reviewed & are unremarkable except as noted in HPI & below Physical Exam Physical Exam: Right knee dressing is c/d/i, prevena suctioning. No calf tenderness. Toes are mobile, good dorsiflexion. Sensation intact. Distally n/v status intact. Results & Data ([facility]) Vital Signs (Past 12 Hours) Vital Signs Temp Pulse Pulse Resp BP BP Pulse Ox 12/02/19 04:09 37.1 C 85 16 118/65 97 12/01/19 23:40 36.5 C 101 H 16 100/62 97 12/01/19 22:24 36.6 C 98 H 16 111/73 99 12/01/19 21:32 90 16 128/79 97 12/01/19 20:54 80 114/72 12/01/19 20:21 90 16 122/73 99 12/01/19 19:51 36.4 C L 91 H 16 121/80 98 12/01/19 19:25 36.6 C 94 H 16 136/90 94 (1) Infection of total knee replacement Encounter type: initial encounter Qualified Code(s): T84.59XA - Infection and inflammatory reaction due to other internal joint prosthesis, initial encounter; Z96.659 - Presence of unspecified artificial knee joint
[2019-12-02] MEDS ORDERED: VANCOMYCIN TROUGH SCH (07:30)
[2019-12-02 07:45] LABS: Hematocrit (blood only) 37.5 % (42-52); Hemoglobin 12.7 g/dL (14.0-18.0); Mean Corpuscular Hemoglobin 31.8 pg (25-34); Mean Corpuscular Hgb Conc 33.9 g/dL (32-36); Mean Platelet Volume 9.4 fL (7.4-10.4); Platelet Count 206 K/uL (130-400); RDW Coefficient of Variation 12.5 % (11.5-14.5); RDW Standard Deviation 43.2 fL (36.4-46.3); Red Blood Count 3.99 M/uL (4.7-6.1); White Blood Count 8.35 K/uL (4.8-10.8)
[2019-12-02 08:10] LABS: INR 1.3 (0.9-1.1); Prothrombin Time 13.8 Seconds (9.0-12.0)
[2019-12-02] MEDS: carvediloL 3.125 MG TAB PO SCH ×2 (08:12→20:55)
[2019-12-02] MEDS: VANCOMYCIN HCL 1,500 MG in SODIUM CHLORIDE 0.9% 500 ML IV SCH ×2 (08:12→19:41)
--- NOTE | 2019-12-02 08:16 | Anesthesiology Progress Note ---
Date of Service December 02, 2019 Anesthesia Post Procedure Vital Signs Vital Signs: Temp Pulse Pulse Pulse Resp BP BP 12/02/19 07:57 36.7 C 88 16 121/72 12/02/19 04:09 37.1 C 85 16 118/65 12/01/19 23:40 36.5 C 101 H 16 100/62 12/01/19 22:24 36.6 C 98 H 16 111/73 12/01/19 21:32 90 16 128/79 12/01/19 20:54 80 114/72 12/01/19 20:21 90 16 122/73 12/01/19 19:51 36.4 C L 91 H 16 121/80 12/01/19 19:25 36.6 C 94 H 16 136/90 12/01/19 19:05 90 12 131/90 12/01/19 18:55 82 14 133/96 12/01/19 18:45 97 H 14 125/88 12/01/19 18:35 92 H 16 134/83 12/01/19 18:27 36.4 C L 91 H 12 126/89 12/01/19 15:11 36.8 C 80 18 133/84 Pulse Ox 12/02/19 07:57 93 12/02/19 04:09 97 12/01/19 23:40 97 12/01/19 22:24 99 12/01/19 21:32 97 12/01/19 20:54 12/01/19 20:21 99 12/01/19 19:51 98 12/01/19 19:25 94 12/01/19 19:05 97 12/01/19 18:55 98 12/01/19 18:45 98 12/01/19 18:35 96 12/01/19 18:27 97 12/01/19 15:11 98 Pain Intensity Right Knee: Pain Intensity: 3 Notes Mental Status: alert / awake / arousable and participated in evaluation Patient Amnestic to Procedure: Yes Nausea / Vomiting: adequately controlled Pain: adequately controlled Airway Patency, RR, SpO2: stable & adequate BP & HR: stable & adequate Hydration State: stable & adequate Anesthetic Complications: no major complications apparent and Pt Satisfied with anesthetic care
[2019-12-02 08:22] LABS: BUN Creatinine Ratio 14.9 (10-20); Est GFR (African American) 96.7; Est GFR (Non-African American) 83.5; Magnesium 1.7 mg/dl (1.8-2.4); Potassium 4.1 mmol/L (3.5-5.1)
--- NOTE | 2019-12-02 09:03 | Pharmacy Report ---
Pharmacy Abx Dose Short Note - Date of Service December 02, 2019 - Assessment & Plan Assessment 69 year old M receiving vancomycin IV for treatment of infected R TKA * POD#1 s/p right TKA I&D, poly exchange, synovectomy, and placement of antibiotic beads * R knee culture from 11/29 is growing coag neg staph * R knee culture from I&D on 11/30 is pending Plan Vancomycin * Trough level of 19.6 mcg/mL is therapeutic * Empirically decrease vanc to 1500 mg IV every 12 hours * Goal trough level: ~15 mcg/mL * Ordered trough level for 12/03 @ 0730 Pharmacy will continue to follow and will adjust dose/frequency as necessary. Thank you.
[2019-12-02] MEDS: MAGNESIUM SULFATE / D5W 1 GM/100 ML BAG IV SCH ×2 (09:10→10:57)
[2019-12-02] MEDS: WARFARIN SOD 4 MG TAB PO SCH (15:30)
[2019-12-02] MEDS: SODIUM CHLORIDE 0.9% 1000ML 1,000 ML IV SCH (15:38)
--- NOTE | 2019-12-02 17:49 | Hospitalist Progress Note ---
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 - Synovial WBC 78; consider gout flare up. - Right knee fluid from 11/29 +Coag neg Staph, requested sensitivities. Culture obtained during OR is pending. - Continue Vancomycin IV. Will likely need 6 weeks of IV abx per Olivia POWELL consult via phone call today. Also recommend follow up with Olivia POWELL in outpatient clinic. - Ortho as primary team - s/p right TKA I&D, poly exchange, synovectomy, placement of antibiotic beads on 11/30, POD#1. On the advised cardiac risk index patient would be a class II 6% risk of cardiac issue in 30 days related to his H/O [place]. Reversed Coumadin for procedure. (2) CAD (coronary artery disease): - H/o CABG and NSTEMI - Echo (December 2017) - EF 55-60% with hypokinesis of basal inferolateral wall - no recent echocardiograms to compare. - Holding Ramipril during operative period - BP has been stable; continue Coreg as prescribed. (3) Atrial fibrillation: - Patient reports this was once paroxysmal but largely remains in A Fib; per record review he had a holter that revealed A Fib 100% of the time - Continue Carvedilol 3.125 mg BID (10 mg daily at home, is non-formulary as inpatient) - INR was reversed on day of admission for procedure. Resumed Coumadin 4 mg PO daily on 11/30, INR remains subtherapeutic. Mag 1.7 -- ordered mag sulfate 2 gm IV. Dispo: Med/surg; will continue to follow, please call with any questions. Admission and Anticipated Discharge Date Admission Date: November 30, 2019 Supervising Physician Co-Signing Physician Notes Attending Attestation - Chart reviewed in detail, care plan d/w YOU Hooker. I agree w/ the olivo components of her documentation. 69yo male - a.fib, CAD - right septic knee in setting of TKR 1 year ago. Synovial fluid with coag neg staph; sensitivities pending. Remains on IV vanco. Blood cultures negative to date. Vitals/labs stable. Matthew Baires MD Subjective Pt. has right knee swelling but is otherwise doing well. Review of Systems Review of Systems: All systems reviewed & are unremarkable except as noted in HPI & below Constitutional: + fatigue and + weakness; no fever, no chills and no anorexia Respiratory: no cough, no dyspnea and no dyspnea on exertion Cardiovascular: no chest pain, no palpitations and no edema Gastrointestinal: no abdominal pain, no nausea, no vomiting and no constipation Genitourinary: no difficulty urinating Musculoskeletal: no back pain and no joint pain Integumentary: no non-healing lesions Physical Exam Physical Exam: General: Resting comfortably HEENT: NC/AT; PERRLA with EOMI; [place] conjunctiva, MMM. No erythema of posterior pharynx Neck: Supple and nontender Cardiac: RRR Lungs: CTA bilaterally Abdomen: Bowel normoactive X 4; Nontender to palpation Extremities: Warm. Right knee with dressing in place, appears edematous. Neuro: No focal weakness Skin: No rash Results & Data ([facility]) Vital Signs (Past 12 Hours) Vital Signs Temp Pulse Resp BP BP Pulse Ox 12/02/19 15:10 37.0 C 79 16 113/74 99 12/02/19 12:15 36.7 C 89 16 112/75 112/75 96 12/02/19 07:57 36.7 C 88 16 121/72 93 Laboratory Results 12/02/19 12/02/19 12/02/19 Range/Units 07:32 07:32 07:32 WBC 8.35 (4.8-10.8) K/uL RBC 3.99 L (4.7-6.1) M/uL Hgb 12.7 L (14.0-18.0) g/dL Hct 37.5 L (42-52) % MCV 94.0 (80-100) fL MCH 31.8 (25-34) pg MCHC 33.9 (32-36) g/dL RDW Std Deviation 43.2 (36.4-46.3) fL RDW Coeff of Carlos 12.5 (11.5-14.5) % Plt Count 206 (130-400) K/uL MPV 9.4 (7.4-10.4) fL PT 13.8 H (9.0-12.0) Seconds INR 1.3 H (0.9-1.1) Sodium 139 (136-145) mmol/L Potassium 4.1 (3.5-5.1) mmol/L Chloride 108 H (98-107) mmol/L Carbon Dioxide 26 (21-32) mmol/L Anion Gap 5.0 (3-11) BUN 14 (7-18) mg/dl Creatinine 0.93 (0.6-1.4) mg/dl Est Cr Clr Drug Dosing 97.0 ml/min Est GFR ( Amer) 96.7 Est GFR (Non-Af Amer) 83.5 BUN/Creatinine Ratio 14.9 (10-20) Glucose 116 H (70-99) mg/dl Calcium 9.0 (8.5-10.1) mg/dl Magnesium 1.7 L (1.8-2.4) mg/dl Vancomycin Trough (See Comment) mcg/ml 12/02/19 Range/Units 07:32 WBC (4.8-10.8) K/uL RBC (4.7-6.1) M/uL Hgb (14.0-18.0) g/dL Hct (42-52) % MCV (80-100) fL MCH (25-34) pg MCHC (32-36) g/dL RDW Std Deviation (36.4-46.3) fL RDW Coeff of Carlos (11.5-14.5) % Plt Count (130-400) K/uL MPV (7.4-10.4) fL PT (9.0-12.0) Seconds INR (0.9-1.1) Sodium (136-145) mmol/L Potassium (3.5-5.1) mmol/L Chloride (98-107) mmol/L Carbon Dioxide (21-32) mmol/L Anion Gap (3-11) BUN (7-18) mg/dl Creatinine (0.6-1.4) mg/dl Est Cr Clr Drug Dosing ml/min Est GFR ( Amer) Est GFR (Non-Af Amer) BUN/Creatinine Ratio (10-20) Glucose (70-99) mg/dl Calcium (8.5-10.1) mg/dl Magnesium (1.8-2.4) mg/dl Vancomycin Trough 19.6 (See Comment) mcg/ml PG Care Time/CCT Total # of Minutes Spent Total Time Spent with Patient: Total time spent is greater than 50% in coordination of care (as documented) at patient's floor/unit and/or counseling patient: Coding Level of Care Code 37820 Subseq Hosp Care Lvl 2 Diagnoses Infection of total knee replacement T84.59XA; Z96.659 Encounter type: initial encounter CAD (coronary artery disease) I25.10 Atrial fibrillation I48.91 (1) Infection of total knee replacement Encounter type: initial encounter Qualified Code(s): T84.59XA - Infection and inflammatory reaction due to other internal joint prosthesis, initial encounter; Z96.659 - Presence of unspecified artificial knee joint
[2019-12-03] MEDS: SODIUM CHLORIDE 0.9% 1000ML 1,000 ML IV SCH (05:57)
[2019-12-03 06:39] LABS: Hematocrit (blood only) 36.5 % (42-52); Hemoglobin 12.5 g/dL (14.0-18.0); Mean Corpuscular Hemoglobin 32.3 pg (25-34); Mean Corpuscular Hgb Conc 34.2 g/dL (32-36); Mean Corpuscular Volume 94.3 fL (80-100); Mean Platelet Volume 9.4 fL (7.4-10.4); Platelet Count 227 K/uL (130-400); RDW Coefficient of Variation 12.6 % (11.5-14.5); RDW Standard Deviation 42.8 fL (36.4-46.3); Red Blood Count 3.87 M/uL (4.7-6.1)
[2019-12-03 06:54] LABS: INR 1.6 (0.9-1.1); Prothrombin Time 16.3 Seconds (9.0-12.0)
[2019-12-03 07:17] LABS: BUN Creatinine Ratio 12.6 (10-20); Calcium 8.8 mg/dl (8.5-10.1); Creatinine Clr Calc Pharmacy 102.6 ml/min; Est GFR (African American) 101.6; Est GFR (Non-African American) 87.6; Magnesium 1.7 mg/dl (1.8-2.4); Potassium 3.9 mmol/L (3.5-5.1)
[2019-12-03] MEDS: VANCOMYCIN HCL 1,500 MG in SODIUM CHLORIDE 0.9% 500 ML IV SCH ×2 (08:18→20:41)
[2019-12-03] MEDS: carvediloL 3.125 MG TAB PO SCH ×2 (08:18→20:39)
--- NOTE | 2019-12-03 08:27 | Orthopedic Progress Note ---
Date of Service December 03, 2019 Assessment & Plan (1) Infection of total knee replacement: POD#2 Right TKA I&D, poly exchange, synovectomy, placement of antibiotic beads -PT/OT-WBAT -Pain management -DVT prophylaxis-SCDs, resume home warfarin -Intra op cx- prelim -Cultures from knee aspirate on 11/30/19 showing pin point growth, re-incubating. Gram stain with many WBCs, no organisms. Cell count was 78,400 96% poly's. OR cultures are pending. Blood cultures no growth at 24 hours. -Continue IV Vancomycin for now, await final cultures. Will need 6 weeks IV antibiotics. - As per medicine/ ID input. Admission and Anticipated Discharge Date Admission Date: November 30, 2019 Subjective POD #2 Patient resting in bed comfortably. Pain in knee controlled. Denies chest pain, sob, fever, chills, n/v/d. Did well in PT Physical Exam Physical Exam: Right knee dressings c/d/i, no drainage. Toes/ ankle mobile no calf tenderness. A&Ox3 N/V+ Results & Data ([facility]) Vital Signs (Past 12 Hours) Vital Signs Temp Pulse Resp BP Pulse Ox 12/03/19 06:15 36.9 C 92 H 16 129/76 96 12/02/19 23:05 36.9 C 89 18 116/75 97 (1) Infection of total knee replacement Encounter type: initial encounter Qualified Code(s): T84.59XA - Infection and inflammatory reaction due to other internal joint prosthesis, initial encounter; Z96.659 - Presence of unspecified artificial knee joint
[2019-12-03] MEDS: MAGNESIUM SULFATE / D5W 1 GM/100 ML BAG IV SCH ×2 (08:54→10:04)
--- NOTE | 2019-12-03 13:24 | Hospitalist Progress Note ---
Date of Service December 03, 2019 Assessment & Plan (1) Infection of total knee replacement: - S/p R TKA in Sep 2018; unremarkable recovery but unfortunately developed worsening pain and swelling with aspirated fluid concerning for infection. - Synovial WBC 78; consider gout flare up. - Right knee fluid from 11/29 +Coag neg Staph, sensitivities are pending. Culture obtained during OR negative x 24 hours. - Continue Vancomycin IV as inpatient. Start Ceftriaxone 2 gm IV daily on 12/03 in the AM; see discharge plan below. Discussed with Olivia POWELL consult via phone call on 12/01. - Also recommend follow up with Olivia POWELL in outpatient clinic - discussed with nurse navigator. - Ortho is primary team - s/p right TKA I&D, poly exchange, synovectomy, placement of antibiotic beads on 11/30, POD#2. On the advised cardiac risk index patient would be a class II 6% risk of cardiac issue in 30 days related to his H/O [place]. Did reverse Coumadin for procedure. (2) CAD (coronary artery disease): - H/o CABG and NSTEMI - Echo (December 2017) - EF 55-60% with hypokinesis of basal inferolateral wall - no recent echocardiograms to compare. - Holding Ramipril as inpt - BP has been stable; continue Coreg as prescribed. (3) Atrial fibrillation: - Patient reports this was once paroxysmal but largely remains in A Fib; per record review he had a holter that revealed A Fib 100% of the time - Continue Carvedilol 3.125 mg BID (10 mg daily at home, is non-formulary as inpatient) - INR was reversed on day of admission for procedure. Resumed Coumadin 4 mg PO daily on 11/30, INR remains subtherapeutic. Mag level 1.7 - ordered mag sulfate 2 gm IV. Dispo: Med/surg; will continue to follow, please call with any questions. Pt. can be discharged to home following dose of Ceftriaxone tomorrow morning. He will receive first dose on Friday morning via home health -- case management is following. Admission and Anticipated Discharge Date Admission Date: November 30, 2019 Supervising Physician Co-Signing Physician Notes Attending Attestation - Chart reviewed in detail, care plan d/w YOU Hooker. I agree w/ the olivo components of her documentation. 69yo male - a.fib, CAD - right septic knee in setting of TKR 1 year ago. POD #2 s/p I&D, polyexchange, abx beads, etc. Synovial fluid with coag neg staph; sens to oxacillin. Remains on IV vanco. Will change to 2 grams of IV ceftriaxone daily for 6 weeks. Blood cultures remain negative to date. Vitals/labs stable. Anticipate d/c home tomorrow. INR in am. Matthew Baires MD Subjective Pt. is doing well overall. Has right knee swelling and mild pain. Denies chest pain, SOB, constipation. Review of Systems Review of Systems: All systems reviewed & are unremarkable except as noted in HPI & below Constitutional: + fatigue and + weakness; no fever, no chills and no anorexia Respiratory: no cough, no dyspnea and no dyspnea on exertion Cardiovascular: no chest pain, no palpitations and no edema Gastrointestinal: no abdominal pain, no nausea, no vomiting and no constipation Genitourinary: no difficulty urinating Musculoskeletal: no back pain and no joint pain Integumentary: no non-healing lesions Physical Exam Physical Exam: General: Resting comfortably HEENT: NC/AT; PERRLA with EOMI; [place] conjunctiva, MMM. No erythema of posterior pharynx Neck: Supple and nontender Cardiac: RRR Lungs: CTA bilaterally Abdomen: Bowel normoactive X 4; Nontender to palpation Extremities: Warm. Right knee with dressing in place. Neuro: No focal weakness Skin: No rash Results & Data ([facility]) Vital Signs (Past 12 Hours) Vital Signs Temp Pulse Resp BP Pulse Ox 12/03/19 06:15 36.9 C 92 H 16 129/76 96 Laboratory Results 12/03/19 12/03/19 12/03/19 Range/Units 06:20 06:20 06:20 WBC 7.00 (4.8-10.8) K/uL RBC 3.87 L (4.7-6.1) M/uL Hgb 12.5 L (14.0-18.0) g/dL Hct 36.5 L (42-52) % MCV 94.3 (80-100) fL MCH 32.3 (25-34) pg MCHC 34.2 (32-36) g/dL RDW Std Deviation 42.8 (36.4-46.3) fL RDW Coeff of Carlos 12.6 (11.5-14.5) % Plt Count 227 (130-400) K/uL MPV 9.4 (7.4-10.4) fL PT 16.3 H (9.0-12.0) Seconds INR 1.6 H (0.9-1.1) Sodium 137 (136-145) mmol/L Potassium 3.9 (3.5-5.1) mmol/L Chloride 108 H (98-107) mmol/L Carbon Dioxide 23 (21-32) mmol/L Anion Gap 6.0 (3-11) BUN 11 (7-18) mg/dl Creatinine 0.88 (0.6-1.4) mg/dl Est Cr Clr Drug Dosing 102.6 ml/min Est GFR ( Amer) 101.6 Est GFR (Non-Af Amer) 87.6 BUN/Creatinine Ratio 12.6 (10-20) Glucose 102 H (70-99) mg/dl Calcium 8.8 (8.5-10.1) mg/dl Magnesium 1.7 L (1.8-2.4) mg/dl PG Care Time/CCT Total # of Minutes Spent Total Time Spent with Patient: Total time spent is greater than 50% in coordination of care (as documented) at patient's floor/unit and/or counseling patient: Coding Level of Care Code 10698 Subseq Hosp Care Lvl 2 Diagnoses Infection of total knee replacement T84.59XA; Z96.659 Encounter type: initial encounter CAD (coronary artery disease) I25.10 Atrial fibrillation I48.91 (1) Infection of total knee replacement Encounter type: initial encounter Qualified Code(s): T84.59XA - Infection and inflammatory reaction due to other internal joint prosthesis, initial encounter; Z96.659 - Presence of unspecified artificial knee joint
[2019-12-03] MEDS: WARFARIN SOD 4 MG TAB PO SCH (16:35)
[2019-12-03] MEDS: ACETAMINOPHEN 500 MG TAB PO PRN (19:44)
[2019-12-04 06:04] LABS: INR 1.8 (0.9-1.1); Prothrombin Time 18.2 Seconds (9.0-12.0)
[2019-12-04 06:28] LABS: BUN Creatinine Ratio 14.8 (10-20); Calcium 8.7 mg/dl (8.5-10.1); Est GFR (African American) 95.5; Est GFR (Non-African American) 82.4; Magnesium 1.8 mg/dl (1.8-2.4); Potassium 3.9 mmol/L (3.5-5.1)
[2019-12-04] MEDS ORDERED: VANCOMYCIN TROUGH SCH (07:30)
[2019-12-04] MEDS: carvediloL 3.125 MG TAB PO SCH (07:42)
[2019-12-04] MEDS ORDERED: cefTRIAXone SODIUM 2,000 MG in DEXTROSE 5% 50 ML IV SCH (08:00)
--- NOTE | 2019-12-04 08:12 | Orthopedic Progress Note ---
Date of Service December 04, 2019 Assessment & Plan (1) Infection of total knee replacement: POD#3 Right TKA I&D, poly exchange, synovectomy, placement of antibiotic beads -PT/OT-WBAT -Pain management -DVT prophylaxis-SCDs, resume home warfarin -Intra op cx- prelim no growth, previous aspirate coag neg staph - Gram stain with many WBCs, no organisms. Blood cultures no growth at 24 hours. -Home w Ceftriaxone as ordered, f/u w [facility] as outpt. - Home w HH today. - PICC placed today. Admission and Anticipated Discharge Date Admission Date: November 30, 2019 Subjective POD #3 Patient resting in bed comfortably. Pain in knee controlled. Denies chest pain, sob, fever, chills, n/v/d. Did well in PT Physical Exam Physical Exam: Right knee [place] c/d/i. Toes/ ankle mobile. No calf tenderness. No erythema/ drainage. A&Ox3 N/V+ Results & Data ([facility]) Vital Signs (Past 12 Hours) Vital Signs Temp Pulse Resp BP BP Pulse Ox 12/03/19 23:20 36.9 C 89 16 109/73 96 12/03/19 20:37 83 105/74 (1) Infection of total knee replacement Encounter type: initial encounter Qualified Code(s): T84.59XA - Infection and inflammatory reaction due to other internal joint prosthesis, initial encounter; Z96.659 - Presence of unspecified artificial knee joint
--- NOTE | 2019-12-04 10:03 | XRay Report ---
XR chest 1V portable CLINICAL HISTORY: PICC Line placement to Right Arm line position COMPARISON STUDY: 11/30/2019 FINDINGS: PICC catheter placed in superior vena cava. No evidence for pneumothorax. IMPRESSION: PICC catheter placed in the superior vena cava. No evidence for pneumothorax. ACT 112: Negative or not required by law. The above report was generated using voice recognition software. It may contain grammatical, syntax or spelling errors. Electronically signed by: Heron Carroll M.D. 12/04/2019 10:01 AM
--- NOTE | 2019-12-04 10:56 | Hospitalist Progress Note ---
Date of Service December 04, 2019 Assessment & Plan (1) Infection of total knee replacement: S/p R TKA in Sep 2018. Presented to [facility] office with worsening right knee pain/swelling. Had arthrocentesis - culture with coag negative staph - sensitive to oxacillin. Had received IV vanco - now transitioned to IV rocephin 2 grams IV daily. Needs 6-week course of IV rocephin via PICC. Patient is POD #3 s/p right TKA I&D, poly exchange, synovectomy, placement of antibiotic beads. Blood cultures negative during this visit. Will need weekly CBC, CMP, ESR while on IV rocephin. Scripts for IV rocephin and labs given to social work today. Patient has scheduled f/u with [email or web address] on December 07. (2) CAD (coronary artery disease): H/o CABG and prior NSTEMI Echo (December 2017) - EF 55-60% with hypokinesis of basal inferolateral wall continue Coreg and resume ramipiril (3) Atrial fibrillation: INR was reversed on day of admission for procedure. Resumed Coumadin 4 mg PO daily on 11/30, INR remains subtherapeutic but slowly rising - 1.8 today. Patient has INR machine at his home. Advised INR on Friday, 12/05, and call result to the provider that manages his coumadin. Ok from medical standpoint to d/c home Admission and Anticipated Discharge Date Admission Date: November 30, 2019 Subjective saw patient just prior to discharge. feeling well. no complaints. understands the plan for 6 weeks of abx treatment. Review of Systems Constitutional: no fever and no chills Respiratory: no dyspnea Cardiovascular: no chest pain Gastrointestinal: no diarrhea/loose stools Physical Exam Constitutional: well developed and well nourished; no acute distress and no altered mental status ENMT: external ear and nose normal, oropharynx normal Respiratory: normal respiratory effort, lungs clear to auscultation Cardiovascular: Rate/Rhythm: regular rate and + irregularly irregular Heart Sounds: normal S1 and normal S2; no murmur Vessels: posterior tibial pulses present and dorsalis pedis pulses present; no JVD Gastrointestinal (Abdomen): normal bowel sounds, soft, nontender, no hepatosplenomegaly Psychiatric: A+Ox3, euthymic affect Results & Data ([facility]) Vital Signs (Past 12 Hours) Vital Signs Temp Pulse Pulse Pulse Resp BP Pulse Ox 12/04/19 09:08 36.6 C 90 90 79 18 124/85 98 12/04/19 08:10 36.6 C 90 18 124/85 98 12/03/19 23:20 36.9 C 89 16 109/73 96 Laboratory Results Laboratory Results - last 24 hr 12/04/19 12/04/19 05:25 05:25 PT 18.2 H INR 1.8 H Sodium 138 Potassium 3.9 Chloride 107 Carbon Dioxide 26 Anion Gap 5.0 BUN 14 Creatinine 0.94 Est Cr Clr Drug Dosing 96.0 Est GFR ( Amer) 95.5 Est GFR (Non-Af Amer) 82.4 BUN/Creatinine Ratio 14.8 Glucose 103 H Calcium 8.7 Magnesium 1.8 PG Care Time/CCT Total # of Minutes Spent Total Time Spent with Patient: Total time spent is greater than 50% in coordination of care (as documented) at patient's floor/unit and/or counseling patient: Coding Level of Care Code 64587 Subseq Hosp Care Lvl 2 Diagnoses Infection of total knee replacement T84.59XA; Z96.659 Encounter type: initial encounter CAD (coronary artery disease) I25.10 Coronary Disease-Associated Artery/Lesion type: [place] artery [place] vs. transplanted heart: [place] heart Associated angina: without angina Atrial fibrillation I48.21 Atrial fibrillation type: permanent (1) Infection of total knee replacement Encounter type: initial encounter Qualified Code(s): T84.59XA - Infection and inflammatory reaction due to other internal joint prosthesis, initial encounter; Z96.659 - Presence of unspecified artificial knee joint (2) CAD (coronary artery disease) Coronary Disease-Associated Artery/Lesion type: [place] artery [place] vs. transplanted heart: [place] heart Associated angina: without angina Qualified Code(s): I25.10 - Atherosclerotic heart disease of [place] coronary artery without angina pectoris (3) Atrial fibrillation Atrial fibrillation type: permanent Qualified Code(s): I48.21 - Permanent atrial fibrillation
--- NOTE | 2019-12-13 17:00 | Discharge Summary (DS) ---
CHIEF COMPLAINT: Infected right total knee replacement. HISTORY OF PRESENT ILLNESS: This is a 69-year-old male patient of Dr. Morrow who underwent a right total knee arthroplasty approximately 14 months ago. He presented to the office in the absence of Dr. Morrow with increased pain and swelling in his right knee. Aspiration was done in the office and was sent for Gram stain and cell count as well as cultures. The patient was direct admitted because of the cloudiness of the aspirate and was immediately put on IV antibiotics. Initial Gram stain and cultures from the knee aspirate on that day showed coag negative staph. The patient was initially put on vancomycin. He underwent a right total knee arthroplasty, I&D with poly exchange, synovectomy and placement of antibiotic beads. Intraoperative cultures were taken. PAST MEDICAL HISTORY: Healthy 69-year-old male. POSTOPERATIVE COURSE: The patient underwent a right total knee arthroplasty I&D with poly exchange, synovectomy and placement of antibiotic beads. He was followed closely with infectious disease, medical consultation, DVT prophylaxis in the form of Coumadin and pain control. The patient did very well postoperatively. His blood cultures were negative for any infection. He was continued to be treated for coag negative staph, which eventually was changed to 2 grams of ceftriaxone IV. The patient had a PICC line placed. Home health services were used for his antibiotic and physical therapy. PLAN: The patient was discharged on postoperative day #4 with home health services with a PICC line and IV antibiotics as ordered. He will continue his preadmission medications including his warfarin per his primary care physician with the addition of pain medications. He will follow up as scheduled as an outpatient with Dr. Morrow as well as infectious disease. We will get the appropriate lab work for his medications IV. KENIA
== END 2019-12-04 10:53 | disposition home health service (06) | DRG 486 ==
LOC: 3N 14:53